=== PATIENT | male | born 1975 | race Caucasian/White ===

== ENCOUNTER 2018-04-19 21:04 | Emergency (ER) | payer SELFPAY ==
[~2018-04-19] VITALS: Ht 165.1 cm; Wt 68.0 kg
--- NOTE | 2018-04-19 21:34 | NUR ---
Dr. Andrea at bedside for MSE.
[2018-04-19] MEDS ORDERED: HYDROCODONE/APAP 5-325MG TABLET ONE (21:44)
[2018-04-19] MEDS ORDERED: HYDROCODONE/APAP 5-325MG TABLET PO ONE (21:45)
[2018-04-19] MEDS ORDERED: HYDROMORPHONE 1 MG/1 ML DISP.SYRIN IM ONE (22:15)
[2018-04-19] MEDS ORDERED: ONDANSETRON 4 MG/2 ML VIAL IM ONE (22:15)
[2018-04-19] MEDS ORDERED: LIDOCAINE 5% PATCH TD ONE ×2 (22:15→22:20)
--- NOTE | 2018-04-19 22:15 | NUR ---
Pt states pain still the same, request for more pain medication.
[2018-04-19] MEDS ORDERED: ONDANSETRON 4 MG/2 ML VIAL ONE (22:19)
[2018-04-19] MEDS ORDERED: HYDROMORPHONE 2 MG/1 ML DISP.SYRIN ONE (22:19)
--- NOTE | 2018-04-19 22:42 | NUR ---
Patient discharged to home in stable conditon. Written and verbal after care instructions given. Patient verbalizes understanding of instructions. Pt ambulated out of ER with steady gait, no acute signs of distress, VSS, all belongings taken.
[2018-04-19 22:44] VITALS: BP 142/87
== END 2018-04-19 22:44 | disposition home or self-care (01) ==
LOC: ER 21:08
DX: G89.11 Acute pain due to trauma (principal); M54.6 Pain in thoracic spine
CPT/HCPCS: 72072; A4663; J1170; J2405

== ENCOUNTER 2018-09-24 13:10 | Emergency (ER) | payer SELFPAY ==
[~2018-09-24] VITALS: Ht 167.6 cm; Wt 72.6 kg
[2018-09-24] MEDS ORDERED: HYDROMORPHONE 2 MG/1 ML DISP.SYRIN ONE (13:20)
[2018-09-24] MEDS ORDERED: ONDANSETRON 4 MG/2 ML VIAL ONE (13:20)
--- NOTE | 2018-09-24 13:29 | NUR ---
PT WAS EVALUTED BY DR BETTENCOURT. PT WAS D/C'd TO HOME. D/C INSTRUCTIONS GIVEN TO THE PT.
[2018-09-24] MEDS ORDERED: HYDROMORPHONE 1 MG/1 ML DISP.SYRIN IM ONE (13:30)
[2018-09-24] MEDS ORDERED: ONDANSETRON 4 MG/2 ML VIAL IM ONE (13:30)
[2018-09-24 13:31] VITALS: BP 139/75
== END 2018-09-24 13:31 | disposition home or self-care (01) ==
LOC: ER 13:10
DX: M54.5 Low back pain (principal); F17.200 Nicotine dependence, unspecified, uncomplicated
CPT/HCPCS: 96372 ×2; 99283; J1170; J2405; A4663

== ENCOUNTER 2018-12-11 07:59 | Emergency (ER) | payer SELFPAY ==
[~2018-12-11] VITALS: Ht 165.1 cm; Wt 68.0 kg
[2018-12-11] MEDS: MORPHINE SULFATE 2 MG/1 ML DISP.SYRIN IM ONE (08:27)
[2018-12-11] MEDS ORDERED: MORPHINE SULFATE 2 MG/1 ML DISP.SYRIN ONE (08:28)
--- NOTE | 2018-12-11 08:31 | NUR ---
Patient discharged to home in stable conditon. Written and verbal after care instructions given to patient. Patient verbalizes understanding of instructions.
== END 2018-12-11 08:32 | disposition home or self-care (01) ==
LOC: ER 07:59
DX: M54.5 Low back pain (principal); F17.200 Nicotine dependence, unspecified, uncomplicated
CPT/HCPCS: 96372; 99283; J2270; A4663

== ENCOUNTER 2019-01-11 21:37 | Emergency (ER) | payer SELFPAY ==
[~2019-01-11] VITALS: Ht 167.6 cm; Wt 72.6 kg
[2019-01-11] MEDS ORDERED: ONDANSETRON ODT 4 MG TAB.RAPDIS ONE (22:59)
[2019-01-11] MEDS ORDERED: HYDROMORPHONE HCL 2 MG TABLET ONE (22:59)
[2019-01-11] MEDS ORDERED: ONDANSETRON ODT 4 MG TAB.RAPDIS SL ONE (23:00)
[2019-01-11] MEDS ORDERED: HYDROMORPHONE HCL 2 MG TABLET PO ONE (23:00)
--- NOTE | 2019-01-11 23:02 | NUR ---
Patient discharged to home in stable conditon. Written and verbal after care instructions given. Patient verbalizes understanding of instructions.
== END 2019-01-11 23:21 | disposition home or self-care (01) ==
LOC: ER 21:37
DX: R51 Headache (principal); H57.89 Other specified disorders of eye and adnexa; F17.200 Nicotine dependence, unspecified, uncomplicated
CPT/HCPCS: A4663; Q0162

== ENCOUNTER 2019-09-06 01:36 | Emergency (ER) | payer SELFPAY ==
[~2019-09-06] VITALS: Ht 167.6 cm; Wt 68.0 kg
[2019-09-06] MEDS ORDERED: PHENAZOPYRIDINE HCL 100 MG TABLET ONE (02:54)
[2019-09-06 02:55] LABS: *BILIRUBIN,URIN NEGATIVE (NEGATIVE); *BLOOD, URINE NEGATIVE (NEGATIVE); *CLARITY,URINE CLEAR (CLEAR); *COLOR,URINE YELLOW (YELLOW); *KETONES,URINE NEGATIVE (NEGATIVE); *UROBILINOGEN,URINE 0.2 E.U./dl (NORMAL); LEUKOCYTE ESTERASE ,URINE NEGATIVE (NEGATIVE); NITRITE, URINE NEGATIVE (NEGATIVE); UGLUCOSE NEGATIVE (NEGATIVE)
[2019-09-06] MEDS ORDERED: PHENAZOPYRIDINE HCL 100 MG TABLET PO ONE (03:00)
--- NOTE | 2019-09-06 04:20 | NUR ---
Patient discharged to home in stable conditon. Written and verbal after care instructions given. Patient verbalizes understanding of instructions. AMBULATORY W/ STABLE GAIT ALL BELONGINGS W/ PT
[2019-09-06 04:57] VITALS: BP 140/90
[2019-09-08 08:16] LABS: *GC NAA Negative (Negative); *TRIC.VAG. NAA Negative (Negative)
== END 2019-09-06 04:13 | disposition home or self-care (01) ==
LOC: ER 01:44
DX: S30.812A Abrasion of penis, initial encounter (principal); F17.200 Nicotine dependence, unspecified, uncomplicated; G89.29 Other chronic pain; M54.9 Dorsalgia, unspecified; X58.XXXA Exposure to other specified factors, initial encounter; Y93.89 Activity, other specified; Y92.89 Other specified places as the place of occurrence of the external cause; Y99.8 Other external cause status
CPT/HCPCS: 87491; A4663

== ENCOUNTER 2019-09-06 11:38 | Emergency (ER) | payer SELFPAY ==
[~2019-09-06] VITALS: Ht 167.6 cm; Wt 68.0 kg
[2019-09-06] MEDS ORDERED: KETOROLAC TROMETHAMINE 30 MG INJ IM ONE (12:00)
[2019-09-06] MEDS ORDERED: KETOROLAC TROMETHAMINE 30 MG INJ ONE (12:06)
[2019-09-06] MEDS ORDERED: MORPHINE SULFATE 4 MG/1 ML DISP.SYRIN ONE (12:08)
[2019-09-06] MEDS ORDERED: MORPHINE SULFATE 4 MG/1 ML DISP.SYRIN IM ONE (12:15)
--- NOTE | 2019-09-06 12:19 | NUR ---
PT WAS EVALUATED BY DR GUSTAFSON. PT WAS D/C'd TO HOME. D/C INSTRUCTIONS GIVEN TO THE PT BY DR GUSTAFSON.
[2019-09-06 12:23] VITALS: BP 135/77
== END 2019-09-06 12:23 | disposition home or self-care (01) ==
LOC: ER 11:39
DX: N48.89 Other specified disorders of penis (principal); G89.29 Other chronic pain; M54.9 Dorsalgia, unspecified; F17.290 Nicotine dependence, other tobacco product, uncomplicated
CPT/HCPCS: 96372; 99283; 99406; J1885; J2270; A4663

== ENCOUNTER 2019-09-29 18:39 | Emergency (ER) | payer MEDICAID ==
[~2019-09-29] VITALS: Ht 167.6 cm; Wt 68.0 kg
--- NOTE | 2019-09-29 19:05 | NUR ---
PATIENT ARRIVED AT THE ER COMPLAINING OF PAIN ON ZAMZAM. FOOT. STATED HE CANNOT AMBULATE DUE TO PAIN. PATIENT AAOX4. IN NO ACUTE DISTRESS. NO CARDIOVASCULAR CONCERN. NO /GI CONCERN.
--- NOTE | 2019-09-29 19:10 | NUR ---
Dr. Andrea on bedside for MSE.
[2019-09-29] MEDS ORDERED: KETOROLAC TROMETHAMINE 30 MG INJ IM ONE (19:15)
[2019-09-29] MEDS ORDERED: KETOROLAC TROMETHAMINE 30 MG INJ ONE (19:19)
--- NOTE | 2019-09-29 19:26 | NUR ---
TORADOL 30MG IM GIVEN TO RIGHT DELTOID.
--- NOTE | 2019-09-29 19:27 | NUR ---
INFORMED [employer]ING/ARELIS REGARDING ORDER FOR ZAMZAM FOOT XRAY.
--- NOTE | 2019-09-29 19:50 | NUR ---
PATIENT WAS HEARD SCREAMING AND YELLING INSIDE HIS ROOM AND WAS FIDGETING ON TISSUE AND SCATTERED IT ALL OVER THE BED AND FLOOR. DR STARK MADE AWARE AND ORDERED TYLENOL ES FOR PAIN. WILL CARRY OUT ORDER.
--- NOTE | 2019-09-29 20:00 | NUR ---
DR STARK ORDEREDF FOR PATIENT TO GET TYLENOL ES 2 TABS. PATIENT REFUSING TO TAKE TYLENOL. DR. STARK MADE AWARE.
[2019-09-29] MEDS ORDERED: ACETAMINOPHEN ES 500 MG TABLET ONE (20:02)
--- NOTE | 2019-09-29 20:44 | NUR ---
Patient discharged to home in stable conditon. Written and verbal after care instructions given. Patient verbalizes understanding of instructions. Patient easily ambulated out of the ER with no apparent pain. All belongings with patient.
[2019-09-29 20:50] VITALS: BP 138/77
== END 2019-09-29 20:44 | disposition home or self-care (01) ==
LOC: ER 18:41
DX: G89.29 Other chronic pain (principal); M79.672 Pain in left foot; M79.671 Pain in right foot; F17.200 Nicotine dependence, unspecified, uncomplicated
CPT/HCPCS: 73630 ×2; 96372; 99283; J1885; A4663; A9150

== ENCOUNTER 2023-04-01 08:10 | Emergency (ER) | payer MEDICAID ==
[~2023-04-01] VITALS: Ht 167.6 cm; Wt 68.0 kg
[2023-04-01 08:10] VITALS: O2SAT 98
[2023-04-01] MEDS ORDERED: ACET1TAB23 PO (08:53)
[2023-04-01] MEDS ORDERED: ACETAMINOPHEN/CODEINE 300-30 MG TABLET PO ONE (09:00)
[2023-04-01] MEDS ORDERED: ACETAMINOPHEN/CODEINE 300-30 MG TABLET ONE (09:02)
== END 2023-04-01 09:13 | disposition home or self-care (01) ==
LOC: ER 08:10
DX: M79.672 Pain in left foot (principal); M79.671 Pain in right foot; G89.29 Other chronic pain; M54.9 Dorsalgia, unspecified; F17.210 Nicotine dependence, cigarettes, uncomplicated; Z79.899 Other long term (current) drug therapy; Z88.8 Allergy status to other drugs, medicaments and biological substances
CPT/HCPCS: A4663

== ENCOUNTER 2024-09-12 13:38 | Emergency (ER) | payer MEDICAID ==
[~2024-09-12] VITALS: Ht 162.6 cm; Wt 54.4 kg
[~2024-09-12 13:38] MED LIST: ACET1TAB23 PO
[2024-09-12] MEDS ORDERED: HYDR-3980 PO (14:36)
[2024-09-12] MEDS ORDERED: MORPHINE SULFATE 4 MG/1 ML DISP.SYRIN ONE (14:41)
[2024-09-12] MEDS: MORPHINE SULFATE 4 MG/1 ML DISP.SYRIN IM ONE (14:47)
[2024-09-12 17:13] VITALS: BP 120/77; O2SAT 99
== END 2024-09-12 16:00 | disposition home or self-care (01) ==
LOC: ER 13:38
DX: G89.29 Other chronic pain (principal); Z76.0 Encounter for issue of repeat prescription; E11.40 Type 2 diabetes mellitus with diabetic neuropathy, unspecified; F17.210 Nicotine dependence, cigarettes, uncomplicated; Z60.2 Problems related to living alone; Z88.5 Allergy status to narcotic agent; Z88.6 Allergy status to analgesic agent; Z88.7 Allergy status to serum and vaccine
CPT/HCPCS: 99283; 96372; J2270; A4606; A4663